=== PATIENT | female | born 1945 | race Caucasian/White ===

== ENCOUNTER → 2017-07-08 10:01 | Outpatient (CLI) | payer MEDICARE, OTHER, SELFPAY ==
[2017-07-09 20:06] LABS: HCV Quant. RNA PCR HCV Not Detected IU/mL (.)
== END ==
PROVIDERS: Family Provider Family Medicine; PCP Family Medicine; Visit Provider Internal Medicine Gastroenterology
DX: B19.20 Unspecified viral hepatitis C without hepatic coma (principal)
CPT/HCPCS: 36415; 87522

== ENCOUNTER → 2017-07-25 13:50 | Outpatient (CLI) | payer MEDICARE, OTHER, SELFPAY ==
[2017-07-26 10:06] LABS: AFP, Tumor Marker 7.5 ng/mL (0.0-8.3)
== END ==
PROVIDERS: Family Provider Family Medicine; PCP Family Medicine; Visit Provider Internal Medicine Gastroenterology
DX: B19.20 Unspecified viral hepatitis C without hepatic coma (principal)
CPT/HCPCS: 36415; 82105

== ENCOUNTER 2024-05-31 12:01 | Emergency (ER) | payer MEDICARE, OTHER, SELFPAY ==
[2024-05-31 12:03] VITALS: BP 129/80; PULSE 87; RESP 20; TEMP 36.4; O2SAT 93; BMI 17.9
--- NOTE | 2024-05-31 12:49 | CT_ITS ---
EXAM: BRAIN/HEAD WITHOUT CONTRAST CLINICAL HISTORY: Dementia. The patient is agitated. COMPARISON: None. TECHNIQUE: Multiple axial tomographic images were obtained without intravenous contrast administration. Coronal and sagittal reconstruction was obtained as well. FINDINGS: Mild degree of cerebral atrophy with periventricular white matter changes suggestive of chronic small vessel disease. Atherosclerotic plaque formation of the cavernous portions of the internal carotid arteries bilaterally. CT/Brain/Head without Contrast IMPRESSION: Cerebral atrophy. Reading Location: [facility]-
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
[2024-05-31 13:19] LABS: Absolute Lymphocyte Count 1.19 X10^3/uL (0.83-4.51); Absolute Neutrophil Count 7.3 X10^3/uL (2.0-7.7); Basophil# 0.05 X10^3/uL; Basophil% 0.6 % (0-1); Eosinophil# 0.03 X10^3/uL; Eosinophils% 0.3 % (0-5); Hematocrit 35.7 % (37-47); Hemoglobin 12.1 g/dL (12.0-15.0); Lymphocyte # 1.19 X10^3/ul (0.83-4.51); Lymphocyte % 13.2 % (19-41); Mean Corp Hgb Conc 33.9 g/dL (32-36); Mean Corpuscular Hgb 32.8 pg (27.0-32.0); Mean Corpuscular Volume 96.7 fL (81-99); Mean Platelet Vol. 10.6 fl (6.2-12.0); Monocyte# 0.46 X10^3/uL; Monocyte% 5.1 % (0-10); NRBC Flagged by Analyzer 0 % (0-5); Neutrophil # 7.26 X10^3/uL (2.7-7.7); Neutrophil % 80.5 % (47-70); Platelet Count 316 K/mm3 (150-450); RBC Distribution Width CV 15.3 % (11.6-14.6); RBC Distribution Width SD 54.4 fl (35.1-43.9); Red Blood Count 3.69 M/mm3 (4.2-5.4)
[2024-05-31] MEDS: Ziprasidone IM 20 MG/ML VIAL 10 MG IM (13:24)
[2024-05-31] MEDS: Lorazepam 2 MG/ML WCH Syringe 1 MG IV (13:24)
[2024-05-31 13:32] LABS: ALB/GLOB Ratio 1.1 RATIO (0.9-2.4); AST(SGOT) 23 U/L (15-37); Alanine Aminotransfer ALT/SGPT 28 U/L (13-56); Albumin, Serum 4.1 g/dL (3.2-5.0); Alkaline Phosphatase 63 U/L (45-117); Anion Gap 6 (5-15); BUN 38 mg/dL (7-18); BUN/Creat Ratio 56.8 RATIO (10-20); Calcium,Total 9.8 mg/dL (8.5-10.1); Chloride 104 mmol/L (98-107); Creatinine, Serum 0.67 mg/dL (0.55-1.02); EST Glomerular Filtration Rate 90 mL/min (>60); Est Glom Filt Rate - Afr Amer 109 mL/min (>60); Estimated Creatinine Clearance 41.92 ml/min; Globulin 3.8 g/dL (2.2-4.2); Glucose 123 mg/dL (74-106); Potassium 3.7 mmol/L (3.5-5.1); Protein, Total 7.9 g/dL (6.4-8.2); Sodium Level 139 mmol/L (136-145)
[2024-05-31 14:13] VITALS: PULSE 88; RESP 16; O2SAT 97
[2024-05-31 15:00] VITALS: PULSE 74; RESP 16; O2SAT 95
[2024-05-31 15:12] LABS: Color, Urine Yellow (Yellow); Glucose, Dipstick Normal (Normal); Ketone-Dipstick Negative (Negative); Leukocyte Esterase-Dipstick 25 /ul (Negative); Nitrite-Dipstick Negative (Negative); Occult Blood-Urine 10 /ul (Negative); Protein-Dipstick 30 mg/dl (Negative); Specific Gravity, Urine 1.025 (1.002-1.030); Urine Clarity Clear (Clear); Urine Urobilinogen 1 mg/dl (Normal)
[2024-05-31 15:13] LABS: Urine Bilirubin Dipstick 1 mg/dL (Negative)
[2024-05-31 15:33] LABS: Red Blood Cells-Urine 5-10 SEEN /hpf (0-5); Squamous Epithelial Cells - UA 0-5 SEEN /hpf (5-10)
[2024-05-31 15:34] LABS: Bacteria RARE /hpf (None Seen); Mucous, Urine 2+ /hpf (<or=2+); White Blood Cells 5-10 SEEN /hpf (0-5)
[2024-05-31 16:00] VITALS: BP 122/84; PULSE 77; RESP 16; O2SAT 98
--- NOTE | 2024-05-31 16:38 | CM.ED ---
Social Work Patient was brought to ED due to increased agitation toward in the home. and granddaughter presented with patient and have been at bedside. Granddaughter stated that patient had been accepted at [facility] and was supposed to admit tomorrow, however they were concerned that patient needed evaluated today due to aggression level. SW contacted SW at [facility] who stated patient would be able to admit today as long as she was not aggressive toward staff or others. During SW visit, patient was restless but calm, walking in room. SW consulted with patients nurse who stated patient had not been aggressive during ED stay. Nurse to nurse number given, . Patient will be admitted to [facility], room 26-1. SW at [facility] stated he already had all appropriate paperwork for admission and would complete the PASRR. Family updated that patient will be admitted to [facility] this evening. Olga Harper, DISTRICT ADMINISTRATOR, INSTRUMENTATION CHEMIST
--- NOTE | 2024-05-31 18:25 | ED.RN ---
report called to [facility] at this time.
[2024-05-31 23:19] VITALS: BP 125/65; PULSE 72; RESP 18; TEMP 36.3; O2SAT 98
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
== END 2024-05-31 23:21 | disposition skilled nursing facility (03) ==
PROVIDERS: Emergency Provider Emergency Medicine; PCP Family Medicine; Visit Provider Emergency Medicine
DX: R45.850 Homicidal ideations (principal); F03.90 Unspecified dementia, unspecified severity, without behavioral disturbance, psychotic disturbance, mood disturbance, and anxiety; I10 Essential (primary) hypertension; Z79.899 Other long term (current) drug therapy
CPT/HCPCS: 70450; 80053; 81001; 85025; 87631; 96372; 96374; 99284; P9612; A4216; J3486